=== PATIENT | female | born 1980 | race Caucasian/White ===

== ENCOUNTER → 2024-01-11 11:27 | Outpatient (BNVA) | payer OTHER, SELFPAY | PROVIDERS: PCP Nurse Practitioner Pediatrics; Visit Provider Physician Assistant Medical | DX: S93.502A Unspecified sprain of left great toe, initial encounter (principal); S93.505A Unspecified sprain of left lesser toe(s), initial encounter; W22.03XA Walked into furniture, initial encounter; Y93.9 Activity, unspecified; Y92.9 Unspecified place or not applicable; Y99.9 Unspecified external cause status | CPT/HCPCS: 73660; 99204 ==

== ENCOUNTER → 2024-01-15 11:18 | Outpatient (BNVA) | payer OTHER, SELFPAY | PROVIDERS: PCP Nurse Practitioner Pediatrics; Visit Provider Physician Assistant Medical | DX: S93.502A Unspecified sprain of left great toe, initial encounter (principal); W22.03XA Walked into furniture, initial encounter | CPT/HCPCS: 29515; 99213 ==